=== PATIENT | female | born 1995 | race African-American/Black ===

== ENCOUNTER 2017-01-13 13:50 | Emergency (ER) | payer OTHER ==
[~2017-01-13] VITALS: Ht 170.2 cm; Wt 60.0 kg
[2017-01-13 14:03] VITALS: TEMP 36.8; Ht 170.2 cm; Wt 60.0 kg
[2017-01-13] MEDS ORDERED: MoRPHine SULFATE 4 MG/ML 1 ML CARP\\VIAL IV STA (14:38)
[2017-01-13] MEDS ORDERED: ONDANSETRON INJ 2 MG/ML 2 ML VIAL IV STA (14:38)
[2017-01-13] MEDS ORDERED: SODIUM CHLORIDE 0.9% 1000ML 1,000 ML IV STA (14:38)
[2017-01-13] MEDS ORDERED: VNTHFA/IN INH (14:51)
[2017-01-13] MEDS ORDERED: BCPILLS PO (14:51)
[2017-01-13] MEDS ORDERED: METH-731 PO (14:51)
[2017-01-13] MEDS ORDERED: OPTIRAY 320 IV PRN (15:00)
[2017-01-13 15:37] LABS: COMPLETE YES; HEMATOCRIT 39.9 % (37-47); IG% 0.2 %; LYMPH % 5.7 %; MEAN CELL VOLUME 92.8 fL (80-100); MEAN CORPUSCULAR HEMOGLOBIN 33.3 pg (25-34); MEAN CORPUSCULAR HGB CONC 35.8 g/dl (32-36); MEAN PLATELET VOLUME 11.7 fL (7.4-10.4); MONO % 1.7 %; NEUT % 92.4 %; PLATELET COUNT 181 K/uL (130-400); WHITE BLOOD COUNT 10.46 K/uL (4.8-10.8)
[2017-01-13 15:48] LABS: BUN/CREATININE RATIO 14.8 (10-20); CREATININE 0.96 mg/dl (0.60-1.20); POTASSIUM 3.9 mmol/L (3.5-5.1)
[2017-01-13 16:35] LABS: URINE APPEARANCE TURBID (CLEAR); URINE BILIRUBIN NEG (NEG); URINE COLOR DK YELLOW; URINE EPITHELIAL CELL AUTO >30 /lpf (0-5); URINE NITRITE POS (NEG); URINE PH 8.5 (4.5-7.5); URINE SPECIFIC GRAVITY 1.019 (1.000-1.030); UROBILINOGEN NEG (NEG)
[2017-01-13 16:41] LABS: MANUAL MICROSCOPIC REQUIRED? NO; REVIEW REQ? YES
[2017-01-13 16:57] LABS: SULFASALICYLIC ACID POS (NEG)
--- NOTE | 2017-01-13 18:01 | DIAGNOSTIC IMAGING REPORT ---
CT SCAN OF THE ABDOMEN AND PELVIS WITH IV CONTRAST CLINICAL HISTORY: Generalized abdominal pain. COMPARISON STUDY: No priors. TECHNIQUE: Following the IV administration of 93 cc of Optiray 320, CT scan of the abdomen and pelvis is performed from the lung bases to the proximal femora. Images are reviewed in the axial, sagittal, and coronal planes. IV contrast was administered without complication. A dose lowering technique was utilized adhering to the principles of ALARA. CT DOSE: 336.56 mGy.cm FINDINGS: Lung bases: The heart is normal in size and without pericardial effusion. The lung bases are clear. Liver: The contrast-enhanced liver is normal in size, contour, and attenuation. Fatty infiltration is seen adjacent to falciform ligament. There is no intrahepatic biliary ductal dilatation. The hepatic veins and portal veins are patent. Gallbladder: Unremarkable. Spleen: Normal in size and attenuation. Pancreas: Unremarkable. Adrenal glands: Unremarkable. Kidneys: The contrast enhanced kidneys are normal in size and without hydronephrosis. The kidneys enhance symmetrically. Abdominal vasculature: The abdominal aorta is normal in course and caliber. Bowel: Moderate colonic fecal retention is observed. No bowel obstruction is seen. The appendix is well-visualized and normal. Peritoneum: There is no intraperitoneal free air or abdominal ascites. There is a small fat-containing umbilical hernia. Lymphadenopathy: None. Pelvic viscera: The bladder wall appears thickened and there is pericystic inflammation. The uterus and adnexa are normal as visualized noting bilateral ovarian follicles. There is a small volume of free fluid in the cul-de-sac. Skeletal structures: No lytic or blastic lesions are seen. IMPRESSION: 1. Findings suggest cystitis. Correlation with clinical findings and urinalysis will be required. 2. A small volume of free fluid in the cul-de-sac is likely within physiologic limits. Clinical correlation will be required. Electronically signed by: Edd Ramos M.D. 01/13/2017 5:59 PM Dictated Date/Time: 01/13/2017 5:55 PM
[2017-01-13] MEDS ORDERED: CEFTRIAXONE SOD INJ 1 GM ADDVIAL IV STA (18:23)
[2017-01-13] MEDS ORDERED: SEPTRA DS HOME PACK 1 EA VIAL PO ONE (18:30)
[2017-01-13] MEDS ORDERED: PHENAZOPYRIDINE HOME PACK 200 MG VIAL PO ONE (18:30)
[2017-01-13] MEDS ORDERED: SULF800T23 PO (18:32)
[2017-01-13] MEDS ORDERED: PHEN-876 PO (18:32)
[2017-01-13 18:39] VITALS: BP 93/61; PULSE 82; O2SAT 99
--- NOTE | 2017-01-13 20:36 | EMERGENCY ROOM VISIT NOTE ---
ED Visit Note First contact with patient: 14:27 Chief Complaint: Abdominal pain. History of Present Illness: Ms. Lawson is a year-old black female complaining of upper abdominal pain. Historically patient reports no significant gastrointestinal diseases or abdominal surgeries. Patient reports a gradual onset of diffuse abdominal pain that started approximately 24 hours ago. She reports initially the pain was mild and has gradually increased in intensity. She reports initially her pain started on the right side of the upper abdomen and is now diffuse throughout the abdomen with prominence in the left upper quadrant. Her pain has been constant and has not waxed and waned in intensity. Currently she rates her discomfort 8/10. Associated with her symptoms she reports she has been nauseated and this morning after eating crackers she vomited twice. Associated with her pain she reports she has been having chills but no addie fever and she has noted an increase in urinary frequency and urge since this morning. . Patient denies sweats, skin eruptions, skin color changes, upper respiratory tract symptoms, shortness of breath, chest pain, diarrhea, constipation, rectal bleeding, black/tarry stools, hematuria, vaginal bleeding, vaginal discharge, back/flank pain. Review of Systems: As noted above in history of present illness. All body systems were reviewed and found to be negative as noted above. Past Medical History: As previously noted, asthma, bronchitis, unspecified urinary problems. Current Medications: Albuterol, methylphenidate, control Allergies to Medications: Patient denies. Social History: Patient is University student; she feels safe in her home environment; she denies tobacco and alcohol use. Physical Examination: Vital Signs: Date Time Temp Pulse Resp B/P (MAP) Pulse Ox O2 Delivery O2 Flow Rate FiO2 01/13/17 18:39 82 16 93/61 99 Room Air 01/13/17 16:34 74 16 95/57 100 Room Air 01/13/17 15:17 78 01/13/17 14:03 36.8 102 16 108/71 100 Room Air GENERAL: 21-year-old female in mild distress due to pain, nontoxic-appearing, afebrile and hemodynamically stable. NEUROLOGICAL: Awake, alert and oriented to person, place and time. Answering questions appropriately and following commands. Normal gait. Good hand eye coordination. SKIN: Warm, dry and pink. No soft tissue eruptions or trauma noted. HEENT: Atraumatic and normocephalic. PERRLA. Sclera white and conjunctiva pink. Oral cavity moist and pink. Pharynx is nonerythematous or edematous. Speech normal. No lymphadenopathy. Trachea midline. No jugular venous distention. BACK: No tenderness over the bony spine. No CVA tenderness. THORAX: Lungs sounds are clear to auscultation and equal bilaterally with symmetrical chest wall. No wheezing, rales or rhonchi. No crepitus, tenderness , subcutaneous air or deformities noted. HEART: Regular rate and rhythm. No gallops, rubs or murmurs are appreciated. ABDOMEN: Flat and soft with mild tenderness over the left lateral upper quadrant and in the epigastric area. Decreased bowel sounds in all quadrants. No guarding, rigidity or organomegaly. EXTREMITIES: Moves all extremities well on command and with purpose. All distal neurovascular statuses are intact and equal bilaterally. ED Course: Patient is assessed as noted above. Patient's medication list was reviewed. Laboratory Testing: Test 01/13/17 14:45 01/13/17 14:55 Range/Units White Blood Count 10.46 4.8-10.8 K/uL Red Blood Count 4.30 4.2-5.4 M/uL Hemoglobin 14.3 12.0-16.0 g/dL Hematocrit 39.9 37-47 % Mean Corpuscular Volume 92.8 80-100 fL Mean Corpuscular Hemoglobin 33.3 25-34 pg Mean Corpuscular Hemoglobin Concent 35.8 32-36 g/dl Platelet Count 181 130-400 K/uL Mean Platelet Volume 11.7 7.4-10.4 fL Neutrophils (%) (Auto) 92.4 % Lymphocytes (%) (Auto) 5.7 % Monocytes (%) (Auto) 1.7 % Eosinophils (%) (Auto) 0.0 % Basophils (%) (Auto) 0.0 % Neutrophils # (Auto) 9.66 1.4-6.5 K/uL Lymphocytes # (Auto) 0.60 1.2-3.4 K/uL Monocytes # (Auto) 0.18 0.11-0.59 K/uL Eosinophils # (Auto) 0.00 0-0.5 K/uL Basophils # (Auto) 0.00 0-0.2 K/uL RDW Standard Deviation 42.3 36.4-46.3 fL RDW Coefficient of Variation 12.5 11.5-14.5 % Immature Granulocyte % (Auto) 0.2 % Immature Granulocyte # (Auto) 0.02 0.00-0.02 K/uL Sodium Level 137 136-145 mmol/L Potassium Level 3.9 3.5-5.1 mmol/L Chloride Level 106 98-107 mmol/L Carbon Dioxide Level 25 21-32 mmol/L Anion Gap 7.0 3-11 mmol/L Blood Urea Nitrogen 14 7-18 mg/dl Creatinine 0.96 0.60-1.20 mg/dl Est Creatinine Clear Calc Drug Dose 89.3 ml/min Estimated GFR () 99.4 Estimated GFR (Non- 85.7 BUN/Creatinine Ratio 14.8 10-20 Random Glucose 108 70-99 mg/dl Calcium Level 9.0 8.5-10.1 mg/dl Total Bilirubin 0.6 0.2-1 mg/dl Direct Bilirubin 0.2 0-0.2 mg/dl Aspartate Amino Transf (AST/SGOT) 14 15-37 U/L Alanine Aminotransferase (ALT/SGPT) 18 12-78 U/L Alkaline Phosphatase 79 45-117 U/L Total Protein 7.7 6.4-8.2 gm/dl Albumin 3.7 3.4-5.0 gm/dl Lipase 94 73-393 U/L Urine Color DK YELLOW Urine Appearance TURBID CLEAR Urine pH 8.5 4.5-7.5 Urine Specific [place] 1.019 1.000-1.030 Urine Protein 1+ NEG Urine Glucose (UA) NEG NEG Urine Ketones 1+ NEG Urine Occult Blood 3+ NEG Urine Nitrite POS NEG Urine Bilirubin NEG NEG Urine Urobilinogen NEG NEG Urine Leukocyte Esterase LARGE NEG Urine WBC (Auto) >30 0-5 /hpf Urine RBC (Auto) >30 0-4 /hpf Urine Hyaline Casts (Auto) 0 0-5 /lpf Urine Epithelial Cells (Auto) >30 0-5 /lpf Urine Bacteria (Auto) 4+ NEG Urine Pathogenic Casts 0 /lpf Urine Test NEG NEG Urine Culture: Pending Contrast abdominal/pelvic CT: Was reviewed by myself and read by the radiologist showing findings consistent with cellulitis including wall thickening and pericystic inflammation. Small vitamin of free fluid in the cul- de-sac. Patient was hydrated with normal saline and received 4 mg of morphine IV for pain and 4 mg of Zofran IV. Patient was reassessed multiple times during her stay in the emergency department. Patient was given 1 g of Rocephin IV prior to discharge for antibiotic coverage. Patient's case was reviewed with Dr. Mcadams; we agreed on diagnostic approach , treatment, disposition and plan per Patient was educated about today's findings and instructed on her treatment plan ; she verbalized agreement with this plan. Clinical Impression: Acute cystitis. Decision-Making: Initially my differential diagnosis I considered pyelonephritis , kidney stone, constipation, bowel obstruction, pancreatitis, hepatitis and other causes. Disposition: Patient discharged home in stable condition; prior to departure she was reassessed and subjectively reported she was pain and symptom-free. Plan: Patient was prescribed Bactrim DS 2 times a day for 10 days. Patient was prescribed Pyridium 200 mg every 8 hours for urinary burning for 2 days. Patient was encouraged use ibuprofen or acetaminophen as needed for pain. Patient was encouraged to follow-up at [facility] in 24-36 hours for recheck and culture results. Patient was encouraged return ED for worsening pain, fevers, worsening vomiting or any new/concerning symptoms.
== END 2017-01-13 19:04 | disposition home or self-care (01) ==
LOC: C.EDB 13:52
DX: N30.00 Acute cystitis without hematuria (principal); J45.909 Unspecified asthma, uncomplicated; Z79.899 Other long term (current) drug therapy